=== PATIENT | female | born 1990 | race African-American/Black ===

== ENCOUNTER 2020-04-23 06:58 | Emergency (ER) | payer OTHER ==
[~2020-04-23] VITALS: Ht 162.6 cm; Wt 74.8 kg
[~2020-04-23 06:58] MED LIST: FLEXERIL PO; IBUPROFEN 600600 M1 PO; NORCO 5-325 TA1 EACH PO; ULTRAM 50MG TAB50 MG PO
[2020-04-23] MEDS ORDERED: CYCLOBENZAPRINE10 MG PO (07:59)
[2020-04-23 08:15] VITALS: BP 148/92
== END 2020-04-23 08:15 | disposition home or self-care (01) ==
LOC: ER 06:58
DX: S43.401A Unspecified sprain of right shoulder joint, initial encounter (principal); M62.838 Other muscle spasm; Z88.0 Allergy status to penicillin; V47.5XXA Car driver injured in collision with fixed or stationary object in traffic accident, initial encounter; Y93.89 Activity, other specified; Y92.89 Other specified places as the place of occurrence of the external cause; Y99.8 Other external cause status

== ENCOUNTER 2020-08-17 09:43 | Emergency (ER) | payer OTHER ==
[~2020-08-17] VITALS: Ht 162.6 cm; Wt 72.6 kg
[~2020-08-17 09:43] MED LIST changes: +CYCLOBENZAPRINE10 MG PO
[2020-08-17 10:33] LABS: URINE BILIRUBIN NEGATIVE (Negative); URINE BLOOD 3+ (Negative); URINE CLARITY CLEAR; URINE COLOR YELLOW; URINE GLUCOSE-RANDOM* NEGATIVE (Negative); URINE KETONES NEGATIVE (Negative); URINE LEUKOCYTES-REFLEX TRACE (Negative); URINE NITRITE-REFLEX NEGATIVE (Negative); URINE PROTEIN (DIPSTICK) NEGATIVE (Negative); URINE SPECIFIC GRAVITY <= 1.005 (1.005-1.035); URINE UROBILINOGEN 0.2 E.U./dl (0.2-1.0)
[2020-08-17 10:45] LABS: CASTS None Seen /LPF (None Seen); CRYSTALS None Seen /LPF (None Seen); SQUAMOUS 0-3 Few /LPF (0-3)
[2020-08-17 10:47] LABS: BACTERIA-REFLEX 1-9 Few /HPF (None Seen); URINE RBC 0-2 Rare /HPF (0-2); URINE WBC-REFLEX 0-5 Rare /HPF (0-5)
[2020-08-17 11:37] VITALS: BP 137/78
--- NOTE | 2020-08-17 11:52 | EKG ---
[address] [address] ELECTROCARDIOGRAM REPORT Name: YULIA SANTIAGO Room #: DEP Ale#: [id number] Admission: 08/17/20 Attend Phys: Discharge: 08/17/20 Date of : 88 Report #: [id number] [facility] ED Test Date: 2020-08-17 Test Time: 10:23:50 Pat Name: YULIA SANTIAGO Department: Room: Gender: F Daycare Provider: verena : 1990 Requested By: Hakeem Ellison Order Number: [id number] MD: Kristofer Chaudhari Measurements Intervals Aneta Rate: 90 P: 34 DC: 148 QRS: 35 QRSD: 101 T: 10 QT: 378 QTc: 463 Interpretive Statements Sinus rhythm No previous ECG available for comparison Electronically Signed On 08-17-2020 11:52:06 [employer] by Kristofer Chaudhari [email or web address] <ELECTRONICALLY SIGNED> By: Kristofer Chaudhari MD, [facility] 08/17/20 1152 1023 1023 Kristofer Chaudhari MD, FACC /EPI
== END 2020-08-17 11:38 | disposition home or self-care (01) ==
LOC: ER 09:43
PROVIDERS: Emergency Medicine
DX: R55 Syncope and collapse (principal); R53.83 Other fatigue; R06.02 Shortness of breath; Z79.899 Other long term (current) drug therapy; Z88.0 Allergy status to penicillin